=== PATIENT | female | born 1960 | race Caucasian/White ===

== ENCOUNTER 2017-07-17 11:54 | Emergency (ER) | payer MEDICAID ==
[~2017-07-17] VITALS: Ht 162.6 cm; Wt 57.4 kg
[~2017-07-17 11:54] MED LIST: ALBU8HFA IH; HYDR-3972 PO; LORA1TAB PO; METH-360 PO
[2017-07-17 12:23] LABS: CLARITY,URINE CLOUDY (Clear); COLOR,URINE YELLOW (Yellow); GLUCOSE, URINE NEGATIVE (Neg); KETONES,URINE NEGATIVE (Neg); LEUKOCYTE ESTERASE ,URINE LARGE (Neg); NITRITES, URINE POSITIVE (Neg); OCCULT BLOOD,URINE LARGE (Neg); PH,URINE 5.5 (4.8-8.0); PROTEIN,URINE 100 mg/dl (Neg)
[2017-07-17 12:24] LABS: UA COLLECTION TYPE CLN CATCH MIDSTREAM
[2017-07-17 12:31] LABS: SQUAMOUS EPITHELIAL CELL,UR MODERATE /LPF (FEW)
[2017-07-17 12:32] LABS: BACTERIA,URINE 2+ /HPF (Neg); RBC,URINE TNTC /HPF (0-2); WBC,URINE TNTC /HPF (0-4)
[2017-07-17] MEDS ORDERED: phenazopyridine 100mg tablet PO ONE (12:35)
[2017-07-17] MEDS ORDERED: cephalexin 250mg capsule PO ONE (12:35)
[2017-07-17] MEDS ORDERED: CEPH500C5 PO (12:39)
[2017-07-17 12:51] VITALS: BP 137/69
== END 2017-07-17 12:56 | disposition home or self-care (01) ==
LOC: ER 11:55
DX: N39.0 Urinary tract infection, site not specified (principal); G89.29 Other chronic pain; Z90.710 Acquired absence of both cervix and uterus; Z88.0 Allergy status to penicillin
CPT/HCPCS: 81001; 87077; 87088; 87186; 99284